=== PATIENT | male | born 1955 | race Two or more races ===

== ENCOUNTER 2018-07-22 14:28 | Outpatient (CLI) | payer OTHER | END 2018-07-22 14:36 | disposition home or self-care (01) | LOC: RAD 501 14:28 | DX: M77.31 Calcaneal spur, right foot (principal); M21.41 Flat foot [pes planus] (acquired), right foot ==

== ENCOUNTER 2018-10-19 07:58 | Outpatient (CLI) | payer OTHER | END 2018-10-19 08:12 | disposition home or self-care (01) | LOC: RAD 07:58 | DX: M70.51 Other bursitis of knee, right knee (principal); M70.52 Other bursitis of knee, left knee ==

== ENCOUNTER → 2018-11-03 | Outpatient (CLI) | payer OTHER | END | disposition home or self-care (01) | LOC: RAD 08:40 | DX: M54.5 Low back pain (principal) ==

== ENCOUNTER → 2018-12-15 | Outpatient (CLI) | payer OTHER | END | disposition home or self-care (01) | LOC: MRI 12:13 | DX: M54.5 Low back pain (principal) | CPT/HCPCS: 72148 ==

== ENCOUNTER 2019-01-14 11:05 | Outpatient (CLI) | payer OTHER | END 2019-01-14 11:07 | disposition home or self-care (01) | LOC: RAD 11:05 | DX: M60.89 Other myositis, multiple sites (principal) ==

== ENCOUNTER → 2019-03-25 | Outpatient (CLI) | payer OTHER | END | disposition home or self-care (01) | LOC: MRI 07:45 | DX: M54.12 Radiculopathy, cervical region (principal); M60.89 Other myositis, multiple sites | CPT/HCPCS: 72141 ==

== ENCOUNTER → 2019-04-12 | Outpatient (CLI) | payer OTHER | END | disposition home or self-care (01) | LOC: RAD 08:24 | DX: M17.0 Bilateral primary osteoarthritis of knee (principal) ==

== ENCOUNTER 2019-06-21 08:44 | Outpatient (CLI) | payer OTHER | END 2019-06-21 08:46 | disposition home or self-care (01) | LOC: TOM 08:44 | DX: J32.0 Chronic maxillary sinusitis (principal) ==

== ENCOUNTER 2019-08-13 07:16 | Outpatient (CLI) | payer OTHER | END 2019-08-13 07:30 | disposition home or self-care (01) | LOC: MRI 07:16 | PROVIDERS: ATTEND Physical Medicine & Rehabilitation | DX: R51 Headache (principal) | CPT/HCPCS: 70551 ==

== ENCOUNTER 2019-11-12 07:31 | Outpatient (CLI) | payer OTHER | END 2019-11-12 07:34 | disposition home or self-care (01) | LOC: NUCLEAR 07:31 | PROVIDERS: ATTEND Internal Medicine Cardiovascular Disease | DX: I20.8 Other forms of angina pectoris (principal) | CPT/HCPCS: 78452; 93017; A9500; J0153 ==

== ENCOUNTER 2020-05-23 08:25 | Outpatient (CLI) | payer OTHER | END 2020-05-23 08:34 | disposition home or self-care (01) | LOC: MRI 08:25 | DX: M24.561 Contracture, right knee (principal); M65.861 Other synovitis and tenosynovitis, right lower leg | CPT/HCPCS: 73718 ==

== ENCOUNTER 2021-10-31 11:30 | Outpatient (CLI) | payer OTHER | END 2021-10-31 11:35 | disposition home or self-care (01) | LOC: RAD 11:30 | PROVIDERS: ATTEND Orthopaedic Surgery | DX: M17.0 Bilateral primary osteoarthritis of knee (principal) ==

== ENCOUNTER 2022-05-10 08:23 | Outpatient (CLI) | payer OTHER | END 2022-05-10 08:34 | disposition home or self-care (01) | LOC: MRI 08:23 | PROVIDERS: ATTEND Physical Medicine & Rehabilitation | DX: M54.13 Radiculopathy, cervicothoracic region (principal); M54.14 Radiculopathy, thoracic region; M60.89 Other myositis, multiple sites; M54.12 Radiculopathy, cervical region | CPT/HCPCS: 72141 ==

== ENCOUNTER 2023-06-03 11:58 | Outpatient (CLI) | payer OTHER | END 2023-06-03 12:22 | disposition home or self-care (01) | LOC: RAD 11:58 | DX: M16.0 Bilateral primary osteoarthritis of hip (principal); M17.0 Bilateral primary osteoarthritis of knee ==

== ENCOUNTER → 2023-11-05 13:18 | Outpatient (CLI) | payer OTHER | END | disposition home or self-care (01) | LOC: NUCLEAR 13:18 | DX: M81.0 Age-related osteoporosis without current pathological fracture (principal) ==

== ENCOUNTER 2024-04-27 10:52 | Outpatient (CLI) | payer OTHER | END 2024-04-27 10:54 | disposition home or self-care (01) | LOC: RAD 10:52 | PROVIDERS: ATTEND Specialist | DX: M15.0 Primary generalized (osteo)arthritis (principal) ==